=== PATIENT | male | born 1965 | race Hispanic/Latino ===

== ENCOUNTER → 2016-09-07 | Outpatient (CLI) | payer OTHER ==
--- NOTE | 2016-09-07 10:07 | REP ---
LEFT KNEE SERIES: Five views. HISTORY: Left knee pain. FINDINGS: Five views of the left knee demonstrates minimal medial and patellar osteophytic lipping. Bones, joints and soft tissues are otherwise unremarkable. A normal fabella is seen. No evidence of joint effusion is seen. 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 Otherwise negative. Signed by Alin Bejarano MD 09/07/2016 11:20 A
== END ==
LOC: M RAD 08:46
PROVIDERS: ATTEND Surgery
DX: M25.562 Pain in left knee (principal); M17.12 Unilateral primary osteoarthritis, left knee